=== PATIENT | male | born 2000 | race Caucasian/White ===

== ENCOUNTER 2020-01-28 09:16 | Emergency (ER) | payer MEDICAID ==
[~2020-01-28] VITALS: Ht 167.6 cm; Wt 73.0 kg
[2020-01-28] MEDS ORDERED: LIDOCAINE HCL 1% 20ML VIAL (Pyxis) INJ INFIL SCH (09:45)
[2020-01-28] MEDS ORDERED: IBUPROFEN 800MG TABLET PO SCH (09:45)
[2020-01-28] MEDS ORDERED: ACETAMINOPHEN 500MG TABLET PO SCH (09:45)
[2020-01-28] MEDS ORDERED: CEFTRIAXONE SODIUM 1 G/VIAL IM SCH (09:45)
[2020-01-28 11:24] VITALS: BP 118/82
== END 2020-01-28 11:31 | disposition home or self-care (01) ==
LOC: ER 09:16
DX: L03.032 Cellulitis of left toe (principal)
CPT/HCPCS: 73660; 96372; 99283; J0696; J3490

== ENCOUNTER 2020-01-29 13:14 | Emergency (ER) | payer MEDICAID ==
[~2020-01-29] VITALS: Ht 172.7 cm; Wt 59.0 kg
[2020-01-29 13:22] VITALS: BP 113/63
[2020-01-29] MEDS ORDERED: OXYCODONE HCL/ACETAMINOPHEN 5/325MG TABLET PO ONE (14:00)
== END 2020-01-29 14:05 | disposition home or self-care (01) ==
LOC: ER 13:23
DX: Z48.00 Encounter for change or removal of nonsurgical wound dressing (principal); L03.116 Cellulitis of left lower limb
CPT/HCPCS: 99283

== ENCOUNTER 2020-02-10 15:41 | Emergency (ER) | payer MEDICAID ==
[~2020-02-10] VITALS: Ht 172.7 cm; Wt 59.0 kg
[2020-02-10 16:45] VITALS: BP 112/70
== END 2020-02-10 16:45 | disposition home or self-care (01) ==
LOC: ER 15:41
DX: Z03.818 Encounter for observation for suspected exposure to other biological agents ruled out (principal); F12.10 Cannabis abuse, uncomplicated
CPT/HCPCS: 99281

== ENCOUNTER 2021-10-11 23:18 | Emergency (ER) | payer MEDICAID ==
[~2021-10-11] VITALS: Ht 172.7 cm; Wt 59.0 kg
[2021-10-12] MEDS: SODIUM CHLORIDE 0.9% 1,000 ML IV ONE (02:41)
[2021-10-12] MEDS: CEFAZOLIN 1000MG PREMIX 50 ML IV ONE (02:41)
[2021-10-12 02:43] LABS: BASOPHILS % 0.6 % (0.0-2.0); EOSINOPHILS % 0.2 % (0.0-5.0); HEMATOCRIT. 42.9 % (42.0-52.0); LYMPHOCYTES % 16.5 % (20.0-50.0); MEAN CORPUSCULAR HEMOGLOBIN 32.5 pg (28.0-32.0); MEAN CORPUSCULAR VOLUME 93.2 fL (80.0-94.0); MONOCYTES % 11.9 % (2.0-8.0); NEUTROPHILS % 70.8 % (40.0-76.0); PLATELET 217 x1000/uL (130-400); RED CELL DISTRIBUTION WIDTH 12.8 % (11.6-14.6)
[2021-10-12 02:54] VITALS: BP 125/72
[2021-10-12] MEDS: KETOROLAC 30MG/ML VIAL IV STA (02:54)
[2021-10-12 03:05] LABS: CHLORIDE 105 mEq/L (98-107)
[2021-10-12 03:10] LABS: C REACTIVE PROTEIN QUANT 1.5 mg/L (0.0-3.0)
[2021-10-12] MEDS: MORPHINE SULFATE 4 MG/ML CPJ (NOT FOR IM USE) IV NR (03:15)
[2021-10-12] MEDS ORDERED: CEPH500C2 MT ×3 (04:15→04:17)
[2021-10-12] MEDS ORDERED: IBUP-2029 MT ×2 (04:15)
[2021-10-12] MEDS ORDERED: IBUP-2028 MT (04:17)
== END 2021-10-12 04:51 | disposition home or self-care (01) ==
LOC: ER 23:18
DX: L03.116 Cellulitis of left lower limb (principal); M25.472 Effusion, left ankle; F12.10 Cannabis abuse, uncomplicated
CPT/HCPCS: 36415; 73610; 80048; 83605; 85025; 85651; 86140; 96365; 96375; 99284; J0690; J1885; J7030

== ENCOUNTER 2021-10-15 14:39 | Emergency (ER) | payer MEDICAID ==
[~2021-10-15] VITALS: Ht 172.7 cm; Wt 58.0 kg
[~2021-10-15 14:39] MED LIST: CEPH500C2 MT; IBUP-2028 MT
[2021-10-15 15:05] VITALS: BP 136/54
== END 2021-10-15 15:33 | disposition home or self-care (01) ==
LOC: ER 14:39
DX: Z48.00 Encounter for change or removal of nonsurgical wound dressing (principal)
CPT/HCPCS: 99281

== ENCOUNTER 2022-08-26 15:39 | Emergency (ER) | payer MEDICAID ==
[~2022-08-26] VITALS: Ht 172.7 cm; Wt 55.0 kg
[2022-08-26 16:39] VITALS: BP 113/67
[2022-08-26] MEDS ORDERED: [UNRECOGNIZED DRUG - CODE] TP (18:46)
[2022-08-26] MEDS ORDERED: MUPI1OIN4 TP (18:46)
== END 2022-08-26 19:23 | disposition home or self-care (01) ==
LOC: ER 15:39
DX: L03.012 Cellulitis of left finger (principal); F12.10 Cannabis abuse, uncomplicated
CPT/HCPCS: 99281; 99283

== ENCOUNTER 2023-01-27 16:18 | Emergency (ER) | payer MEDICAID ==
[~2023-01-27] VITALS: Ht 175.3 cm; Wt 61.4 kg
[~2023-01-27 16:18] MED LIST changes: +MUPI1OIN4 TP; +[UNRECOGNIZED DRUG - CODE] TP
[2023-01-27 16:29] VITALS: BP 116/69; PULSE 93; RESP 18; TEMP 98.8; O2SAT 98
[2023-01-27] MEDS ORDERED: LIDOCAINE HCL/EPINEPHRINE 1%-EPI 1:100,000 20 ML VIAL INFIL ONE (16:45)
[2023-01-27] MEDS ORDERED: BACITRACIN ZINC OINT UDPKT TOP ONE (17:00)
[2023-01-27] MEDS ORDERED: TOPUD PO (17:31)
[2023-01-27] MEDS ORDERED: SULF1TAB48 MT (17:31)
[2023-01-27] MEDS ORDERED: IBUP-2028 MT (17:31)
[2023-01-27] MEDS ORDERED: CEPH500C2 MT (17:31)
== END 2023-01-27 17:44 | disposition home or self-care (01) ==
LOC: ER 16:18
DX: L02.416 Cutaneous abscess of left lower limb (principal); F12.10 Cannabis abuse, uncomplicated
CPT/HCPCS: 10060; 99283; J3490

== ENCOUNTER 2023-01-29 15:10 | Emergency (ER) | payer MEDICAID ==
[~2023-01-29] VITALS: Ht 175.3 cm; Wt 62.0 kg
[~2023-01-29 15:10] MED LIST changes: +SULF1TAB48 MT; +TOPUD PO
[2023-01-29 16:15] VITALS: BP 123/68; PULSE 53; RESP 18; TEMP 98.3
== END 2023-01-29 19:29 | disposition left against medical advice (07) ==
LOC: ER 15:10
DX: Z53.21 Procedure and treatment not carried out due to patient leaving prior to being seen by health care provider (principal)
CPT/HCPCS: 99281

== ENCOUNTER 2023-01-30 16:11 | Emergency (ER) | payer MEDICAID ==
[~2023-01-30] VITALS: Ht 172.7 cm; Wt 62.0 kg
[2023-01-30 16:17] VITALS: BP 131/77; PULSE 73; RESP 18; TEMP 98; O2SAT 94
== END 2023-01-30 19:43 | disposition home or self-care (01) ==
LOC: ER 16:11
DX: Z48.02 Encounter for removal of sutures (principal); F12.10 Cannabis abuse, uncomplicated; Z79.899 Other long term (current) drug therapy
CPT/HCPCS: 99281

== ENCOUNTER 2023-05-01 19:39 | Emergency (ER) | payer MEDICAID ==
[~2023-05-01] VITALS: Ht 172.7 cm; Wt 67.0 kg
[2023-05-01 19:55] VITALS: BP 116/74; PULSE 68; RESP 17; TEMP 99; O2SAT 99
[2023-05-01] MEDS ORDERED: CEPH500T MT (21:26)
[2023-05-01] MEDS ORDERED: SULF1TAB48 MT (21:26)
[2023-05-01] MEDS ORDERED: LIDOCAINE HCL/PF 1% 10 MG/ML 5ML VIAL INFIL ONE (21:30)
== END 2023-05-01 22:16 | disposition home or self-care (01) ==
LOC: ER 19:39
DX: L02.413 Cutaneous abscess of right upper limb (principal); F12.90 Cannabis use, unspecified, uncomplicated
CPT/HCPCS: 99283; 10060; J3490